=== PATIENT | female | born 1965 | race Caucasian/White ===

== ENCOUNTER 2022-01-16 13:26 | Emergency (ER) | payer OTHER, SELFPAY ==
[2022-01-16 13:39] VITALS: BP 132/82; PULSE 75; RESP 16; TEMP 36.9; O2SAT 96; BMI 24.8
--- NOTE | 2022-01-16 14:59 | ED.GENADULT ---
HPI - General Adult General Time Seen by Provider: 15:00 Date Seen: 01/16/22 Chief complaint: Fall/Minor Trauma Stated complaint: Arm and Neck Injury Time Seen by Provider: 01/16/22 13:30 Source: patient Mode of arrival: ambulatory Limitations: no limitations History of Present Illness HPI narrative: Patient was referred from urgent care for further evaluation of traumatic injuries after a fall. She was at the [employer] about 8:00 p.m. last night, this was the liquor store in [place] per report. She went to grab something off a shelf and turnaround in there was a palate behind her. She fell onto the palate into the shelf. She injured both wrists, more her left side. There is no loss of consciousness, no ongoing headache. She states it hurts a bit in both wrists, her left elbow hurts, her left shoulder hurts. She did complain of neck pain but it is more the muscles on the side of the neck. When I go into the room and I am talking to her she is moving her neck around mobilizing it. No shortness of breath, no difficulty breathing. She did fall on her knees a bit as well but she states it is not hurting walking, they are not giving her any significant pain. She has an arm sling on this left arm and feels like her fingers are a bit swollen on this side at this time. They were not this way before the injury. Related Data Home Medications Medication Instructions Recorded Confirmed atenolol 25 mg tablet 25 mg PO 01/16/22 01/16/22 cetirizine 10 mg tablet 10 mg PO 01/16/22 01/16/22 duloxetine 30 mg capsule,delayed ea PO 01/16/22 01/16/22 release duloxetine 60 mg capsule,delayed ea PO 01/16/22 01/16/22 release lisinopril 20 1 tab PO 01/16/22 01/16/22 mg-hydrochlorothiazide 25 mg tablet montelukast 10 mg tablet 10 mg PO 01/16/22 01/16/22 omeprazole 20 mg capsule,delayed 20 mg PO 01/16/22 01/16/22 release simvastatin 40 mg tablet 40 mg PO 01/16/22 01/16/22 trazodone 50 mg tablet 50 mg PO 01/16/22 01/16/22 venlafaxine 75 mg capsule,extended ea PO 01/16/22 01/16/22 release 24 hr Allergies Allergy/AdvReac Type Severity Reaction Status Date / Time levofloxacin [From Levaquin] Allergy Severe Rogers's Verified 01/16/22 12:16 tendon pain naproxen Allergy Severe Rash Verified 01/16/22 12:16 Review of Systems Status of ROS: Reports: 6 or more systems reviewed and unremarkable except as noted in History and below [facility] Medical History (Updated 01/16/22 @ 17:29 by Breonna Hernandez MD) Fall with injury Social History Smoking Status: Current every day smoker Exam Const: Vital Signs, click to edit/add: Vital Signs - 24 hr 01/16/22 13:39 Temperature 98.4 F Pulse Rate [Pulse Oximeter] 75 Respiratory Rate 16 Blood Pressure [Ri ght Upper Arm] 132/82 Pulse Oximetry 96 Oxygen Delivery Me thod Room Air Documenting provider has reviewed patient's vital signs: yes Common normals: no apparent distress, average body habitus, oriented x3, no limitations, healthy appearing, alert and well nourished Nutritional appearance: thin HENMT: Common normals: normocephalic, head/scalp atraumatic and hearing grossly normal bilaterally Head and scalp: normocephalic and atraumatic Eye: Common normals: PERRL, EOMs intact bilaterally, conjunctivae normal and no scleral icterus Conjunctiva: conjunctiva(e) normal Pupil: PERRL Neck & C-Spine: Common normals: full ROM (No midline tenderness of her cervical spine.), no lymphadenopathy, supple, no meningeal signs, no JVD, thyroid normal and no carotid bruits Thyroid: thyroid normal Other: Pain is more along the trapezius area on that left side and some into the muscles more laterally on the neck. There is no central neck pain however. She is seen moving and mobilizing her neck around during the interaction. Turns her head easily. Chest: Common normals: inspection of chest normal Other: Complains of pain when I palpate along her clavicle, along the glenohumeral joint, along the trapezius, along the scapula on the left side. No overlying skin changes such as crepitus or bruising noted. Resp: Common normals: normal respiratory effort, no retractions, no use of accessory muscles and clear to auscultation bilaterally Auscultation: clear to auscultation bilaterally Cardio: Common normals: no JVD, regular rate, regular rhythm, S1 normal heart sound, S2 normal heart sound, no gallops, no clicks and no murmurs Rate: regular rate Rhythm: regular rhythm Heart sounds: S1 normal and S2 normal Extremity: Other: Has diminished range of motion around the shoulder and elbow due to pain. She has an ecchymosis more distally along the humerus along the posterolateral aspect. No open wound. I note no effusion around the elbow but she complains of generalized pain on palpation as well as mobilization. Forearm is nontender, she complains of bilateral wrist pain. There is no snuffbox tenderness on either side, no ecchymosis or swelling about the wrist. Complains of generalized tenderness about her wrist. Hands on the left may have just a little finger swelling but no erythema or ecchymosis. She did have this arm in the sling on arrival in do wonder if this could be some edema from immobilization and having the ecchymosis and trauma of this arm. Neuro: Common normals: oriented x3 Sensorium/orientation: alert Meningeal signs: no meningeal signs Course Course Hospital Course: Will be imaging her wrists, left elbow, left shoulder, chest as well as cervical spine. Reviewed with them that they do not feel that she needs cervical spine imaging. The mechanism does not suggest the need for this higher level imaging. She neurologically is not showing me any symptomatology that would suggest she needs a CT of her neck either. I think at this time plain film would be fine. We did discussed pain management. She had a rash from naproxen. We had discussed IM Toradol but given that she had a rash with the naproxen IA will give her 1 dose of 50 mg oral tramadol and await the imaging. Reevaluation(s) Reevaluation #1: Reviewed the normal imaging. Did review with them that this does not rule out such things as rotator cuff pathology. If she has ongoing shoulder issues would have her follow up to be evaluated for that. Often times with initial injuries that can be difficult to tease out soft tissue versus ligament due to the pain of the initial injury. If she has ongoing symptoms have stressed that she does need to be re-evaluated in clinic. Time: 17:36 Vital Signs Vital signs: Initial Vital Signs Temperature 98.4 F 01/16/22 13:39 Temperature Source Temporal Artery Scan 01/16/22 13:39 Pulse Rate 75 01/16/22 13:39 Pulse Rhythm 01/16/22 13:39 Respiratory Rate 16 01/16/22 13:39 Blood Pressure 132/82 01/16/22 13:39 Blood Pressure Mean 98 01/16/22 13:39 Blood Pressure Position Sitting 01/16/22 13:39 Pulse Oximetry 96 01/16/22 13:39 Oxygen Delivery Method 01/16/22 13:39 Vital Signs Temperature 98.4 F 01/16/22 13:39 Pulse Rate 75 01/16/22 13:39 Respiratory Rate 16 01/16/22 13:39 Blood Pressure 132/82 01/16/22 13:39 Pulse Oximetry 96 01/16/22 13:39 Oxygen Delivery Method 01/16/22 13:39 Temperature 98.4 F 01/16/22 13:39 Pulse Rate 75 01/16/22 13:39 Respiratory Rate 16 01/16/22 13:39 Blood Pressure 132/82 01/16/22 13:39 Pulse Oximetry 96 01/16/22 13:39 Oxygen Delivery Method 01/16/22 13:39 Medical Decision Making Imaging Data X-ray cervical spine: Attestation: I have reviewed the pertinent imaging results. My impression: See no acute fracture my preliminary read. Radiologist's impression: Patient: LIZA JAY Facility:?[facility] Patient ID:?[id number] Site Patient ID:?[id number]. Site :?1965 Study:?XRay Spine Cervical -01/16/2022 3:34:12 PM Ordering Physician:?David Ravi Final Report: INDICATION: Pain after fall. COMPARISON: None available. FINDINGS: The cervical spine was examined with AP, lateral and open mouth views for a total of three views. The cervical vertebral bodies and disc spaces are normal in height. The vertebral bodies are in anatomic alignment with no sign of fracture or subluxation. The prevertebral soft tissues are normal in appearance with no sign of swelling. The airway structures are normal in appearance. IMPRESSION: Normal cervical spine three views. Dictated by Neymar Sams MD @ 01/16/2022 4:47:28 PM (Electronic Signature) X-ray left shoulder: Attestation: I have reviewed the pertinent imaging results. My impression: I see no acute fracture my preliminary read. Radiologist's impression: Patient: LIZA JAY Facility:?[facility] Patient ID:?[id number] Site Patient ID:?[id number]. Site :?1965 Study:?XRay Shoulder Left -01/16/2022 3:34:34 PM Ordering Physician:?David Ravi Final Report: INDICATION: Pain after fall COMPARISON: None available. FINDINGS: The left shoulder was examined with AP internal and external rotation and outlet views for a total of three views. The osseous structures are in anatomic alignment without fracture or dislocation. There is anatomic alignment of the humeral head and glenoid. The visualized chest is clear. IMPRESSION: Normal left shoulder. Dictated by Neymar Sams MD @ 01/16/2022 4:48:25 PM (Electronic Signature) X-ray right wrist: Attestation: I have reviewed the pertinent imaging results. My impression: No acute pathology on my preliminary read. Radiologist's impression: Patient: LIZA JAY Facility:?[facility] Patient ID:?[id number] Site Patient ID:?[id number]. Site :?1965 Study:?XRay Extremity Right WRIST-01/16/2022 3:34:55 PM Ordering Physician:?David Ravi Final Report: INDICATION: Pain after fall COMPARISON: None available. TECHNIQUE: AP, lateral, and oblique views of the right wrist are obtained for a total of three views. FINDINGS: There is no sign of fracture or dislocation. The bones of the carpus are in anatomic alignment with the distal radius. No degenerative disease is seen. The soft tissues are normal in appearance with no sign of foreign body. IMPRESSION: Normal right wrist. Dictated by Neymar Sams MD @ 01/16/2022 4:49:12 PM (Electronic Signature) Chest x-ray: Attestation: I have reviewed the pertinent imaging results. My impression: No acute pathology on my preliminary read Radiologist's impression: Patient: LIZA JAY Facility:?[facility] Patient ID:?[id number] Site Patient ID:?[id number]. Site :?1965 Study:?XRay Chest 2 VIEW-01/16/2022 3:35:13 PM Ordering Physician:Serene Ravi Final Report: INDICATION: Pain after fall yesterday COMPARISON: None available. FINDINGS: PA and lateral views of the chest were obtained. The lungs are clear. No focal or diffuse infiltrates are present. The heart is normal in size. The mediastinum is normal in appearance. There are old, healed fractures of the right posterior-lateral 5th and 6th ribs. There is no sign of any acute rib fracture or fracture of the visualized shoulder girdle to correlate with the history of pain after fall. The thoracic spine is normal in appearance for the patient`s age with mild disc degenerative disease scattered throughout it. IMPRESSION: No active disease seen in the chest. No sign of acute osseous injury to correlate with the history of pain after fall. Dictated by Neymar Sams MD @ 01/16/2022 4:50:46 PM (Electronic Signature) X-ray left elbow: Attestation: I have reviewed the pertinent imaging results. My impression: No acute changes on my preliminary read. Radiologist's impression: Patient: LIZA JAY Facility:?[facility] Patient ID:?[id number] Site Patient ID:?[id number]. Site :?1965 Study:?XRay Extremity Left ELBOW-01/16/2022 3:35:36 PM Ordering Physician:Serene Ravi Final Report: INDICATION: Pain after fall COMPARISON: None available. FINDINGS: The left elbow is examined with AP, lateral, and oblique views. There is no sign of fracture, dislocation, or joint effusion. Minimal ossifications are seen adjacent to the coronoid process and the dorsal olecranon from previous soft tissue injury. The soft tissues are normal in appearance without sign of radio-opaque foreign body. No degenerative disease is seen. IMPRESSION: No sign of acute osseous injury. Dictated by Neymar Sams MD @ 01/16/2022 4:52:11 PM (Electronic Signature) X-ray left wrist: Attestation: I have reviewed the pertinent imaging results. My impression: No acute fracture my preliminary read. Radiologist's impression: Patient: LIZA JAY Facility:?[facility] Patient ID:?[id number] Site Patient ID:?[id number]. Site :?1965 Study:?XRay Extremity Left WRIST-01/16/2022 3:35:52 PM Ordering Physician:Serene Ravi Final Report: HISTORY: Pain after fall yesterday. COMPARISON: None available. FINDINGS: AP, lateral, and oblique views of the left wrist are obtained for a total of three views. There is no sign of fracture or dislocation. The bones of the carpus are in anatomic alignment with the distal radius. No degenerative disease is seen. The soft tissues are normal in appearance with no sign of foreign body. IMPRESSION: Normal left wrist. Dictated by Neymar Sams MD @ 01/16/2022 4:53:13 PM (Electronic Signature) Critical Care Time Critical Care Time Critical Care Time: No Discharge Plan Discharge Clinical Impression: Contusion of arm, left, Left shoulder pain, Fall, Cervical strain, acute Condition: Stable Instructions: Cervical Strain (ED), Contusion in Adults (ED), Shoulder Pain (ED) Additional Instructions: Can use the sling you have is needed for comfort. Would recommend followup in clinic this next week if you have ongoing symptoms, recheck the shoulder to ensure there are no thoughts that this might be a rotator cuff injury. Ice the bruised area on the back of your arm. The more you are able to mobilize your arm, the more the swelling will go down in the fingers. Tylenol and ibuprofen per bottle directions as needed for discomfort. Activity Level: Activity as Tolerated Prescriptions: No Action trazodone 50 mg tablet 50 mg PO Label Comments: TAKE 1-2 TABLETS BY MOUTH AT BEDTIME NEEDED FOR SLEEP omeprazole 20 mg capsule,delayed release(DR/EC) 20 mg PO Label Comments: TAKE ONE CAPSULE BY MOUTH ONCE DAILY BEFORE A MEAL venlafaxine 75 mg capsule,extended release 24hr PO Label Comments: TAKE ONE CAPSULE BY MOUTH ONCE DAILY WITH A MEAL montelukast 10 mg tablet 10 mg PO Label Comments: TAKE ONE TABLET BY MOUTH AT BEDTIME lisinopril-hydrochlorothiazide 20-25 mg tablet 1 tab PO Label Comments: TAKE ONE TABLET BY MOUTH EVERY DAY duloxetine 60 mg capsule,delayed release(DR/EC) PO Label Comments: TAKE ONE CAPSULE BY MOUTH ONCE DAILY. TAKE WITH 30MG CAPSULE TO EQUAL 90MG simvastatin 40 mg tablet 40 mg PO Label Comments: TAKE ONE TABLET BY MOUTH AT BEDTIME duloxetine 30 mg capsule,delayed release(DR/EC) PO Label Comments: TAKE WITH 60MG DOSE TO EQUAL 90MG cetirizine 10 mg tablet 10 mg PO Label Comments: TAKE ONE TABLET BY MOUTH EVERY DAY atenolol 25 mg tablet 25 mg PO Follow Up/Referrals: Provider,Not a Local [Primary Care Provider] - Stand Alone Forms: [facility] Info Instructions
--- NOTE | 2022-01-16 15:10 | CRLHL7_ITS ---
For Patients: As a result of the Century Cures Act, medical imaging exams and procedure reports are released immediately into your electronic medical record. You may view this report before your referring provider. If you have questions, please contact your health care provider. INDICATION: Pain after fall COMPARISON: None available. TECHNIQUE: AP, lateral, and oblique views of the right wrist are obtained for a total of three views. FINDINGS: There is no sign of fracture or dislocation. The bones of the carpus are in anatomic alignment with the distal radius. No degenerative disease is seen. The soft tissues are normal in appearance with no sign of foreign body. IMPRESSION: Normal right wrist. Dictated by Neymar Sams MD @ 01/16/2022 4:49:12 PM (Electronically Signed)
--- NOTE | 2022-01-16 15:10 | CRLHL7_ITS ---
For Patients: As a result of the Cures Act, medical imaging exams and procedure reports are released immediately into your electronic medical record. You may view this report before your referring provider. If you have questions, please contact your health care provider. INDICATION: Pain after fall COMPARISON: None available. FINDINGS: The left elbow is examined with AP, lateral, and oblique views. There is no sign of fracture, dislocation, or joint effusion. Minimal ossifications are seen adjacent to the coronoid process and the dorsal olecranon from previous soft tissue injury. The soft tissues are normal in appearance without sign of radio-opaque foreign body. No degenerative disease is seen. IMPRESSION: No sign of acute osseous injury. Dictated by Neymar Sams MD @ 01/16/2022 4:52:11 PM (Electronically Signed)
--- NOTE | 2022-01-16 15:10 | CRLHL7_ITS ---
For Patients: As a result of the Cures Act, medical imaging exams and procedure reports are released immediately into your electronic medical record. You may view this report before your referring provider. If you have questions, please contact your health care provider. INDICATION: Pain after fall yesterday COMPARISON: None available. FINDINGS: PA and lateral views of the chest were obtained. The lungs are clear. No focal or diffuse infiltrates are present. The heart is normal in size. The mediastinum is normal in appearance. There are old, healed fractures of the right posterior-lateral 5th and 6th ribs. There is no sign of any acute rib fracture or fracture of the visualized shoulder girdle to correlate with the history of pain after fall. The thoracic spine is normal in appearance for the patient`s age with mild disc degenerative disease scattered throughout it. IMPRESSION: No active disease seen in the chest. No sign of acute osseous injury to correlate with the history of pain after fall. Dictated by Neymar Sams MD @ 01/16/2022 4:50:46 PM (Electronically Signed)
--- NOTE | 2022-01-16 15:10 | CRLHL7_ITS ---
For Patients: As a result of the Cures Act, medical imaging exams and procedure reports are released immediately into your electronic medical record. You may view this report before your referring provider. If you have questions, please contact your health care provider. HISTORY: Pain after fall yesterday. COMPARISON: None available. FINDINGS: AP, lateral, and oblique views of the left wrist are obtained for a total of three views. There is no sign of fracture or dislocation. The bones of the carpus are in anatomic alignment with the distal radius. No degenerative disease is seen. The soft tissues are normal in appearance with no sign of foreign body. IMPRESSION: Normal left wrist. Dictated by Neymar Sams MD @ 01/16/2022 4:53:13 PM (Electronically Signed)
--- NOTE | 2022-01-16 15:10 | CRLHL7_ITS ---
For Patients: As a result of the Cures Act, medical imaging exams and procedure reports are released immediately into your electronic medical record. You may view this report before your referring provider. If you have questions, please contact your health care provider. INDICATION: Pain after fall. COMPARISON: None available. FINDINGS: The cervical spine was examined with AP, lateral and open mouth views for a total of three views. The cervical vertebral bodies and disc spaces are normal in height. The vertebral bodies are in anatomic alignment with no sign of fracture or subluxation. The prevertebral soft tissues are normal in appearance with no sign of swelling. The airway structures are normal in appearance. IMPRESSION: Normal cervical spine three views. Dictated by Neymar Sams MD @ 01/16/2022 4:47:28 PM (Electronically Signed)
--- NOTE | 2022-01-16 15:12 | CRLHL7_ITS ---
For Patients: As a result of the Century Cures Act, medical imaging exams and procedure reports are released immediately into your electronic medical record. You may view this report before your referring provider. If you have questions, please contact your health care provider. INDICATION: Pain after fall COMPARISON: None available. FINDINGS: The left shoulder was examined with AP internal and external rotation and outlet views for a total of three views. The osseous structures are in anatomic alignment without fracture or dislocation. There is anatomic alignment of the humeral head and glenoid. The visualized chest is clear. IMPRESSION: Normal left shoulder. Dictated by Neymar Sams MD @ 01/16/2022 4:48:25 PM (Electronically Signed)
[2022-01-16] MEDS: TRAMADOL HCL 50 MG TABLET PO (15:36)
--- OUTSIDE RECORDS SUMMARY | 2022-01-16 16:20 | XMS_ITS | Clinical Summary ---
:1965 Author Organization [employer] [facility] [employer] [place] [address] Care Team Providers Name Role Phone Sharita Lambert NP Primary Care Provider Allergies Active Allergy Reactions Severity Noted Date Comments Amoxicillin-Pot Nausea And Vomiting 09/05/2014 heada josi Clavulanate Levofloxacin Rash 09/10/2014 Naproxen Rash 01/13/2009 Unlisted Allergen Respiratory Distress 08/26/2014 se asonal allergies (Include Detail In Comments) Venom-Honey Bee Rash, Edema 12/31/2013 Medications Medication Sig Dispensed Refills Start End Status Date Date EPINEPHrine (EPIPEN) Inject 0.3 mg 2 Each 2 10/19/19 Active 0.3 mg/0.3 mL intramuscular one 20 injectionIndications: time if needed Allergic reaction, for Allergic subsequent encounter Reaction. SUMAtriptan (IMITREX) TAKE ONE TABLET 20 tablet. 5 06/03/19 Active 50 mg BY MOUTH EVERY 2 21 tabletIndications: HOURS NEEDED Migraine without aura FOR MIGRAINE. MAX and with status DOSE 200 MG IN 24 migrainosus, not HOURS. intractable albuterol HFA Inhale 2 Puffs by 1 Each 5 06/03/19 Active (VENTOLIN HFA) 90 mouth 4 times 21 mcg/actuation daily if needed. inhalerIndications: Bronchitis DULoxetine (CYMBALTA) Take with 60 mg 90 Capsule 3 03/16/20 Active 30 mg Delayed-release dose to equal 90 21 capsuleIndications: mg Major depressive disorder, recurrent episode, moderate (HC) DULoxetine (CYMBALTA) Take 1 Capsule 90 Capsule 3 03/16/20 Active 60 mg Delayed-release (60 mg) by mouth 21 capsuleIndications: once daily. Take Major depressive with 30 mg disorder, recurrent capsule to equal episode, moderate 90 mg (HC) fluticasone (50 mcg Inhale 2 Sprays 16 g 0 04/22/19 Active per actuation) nasal to both nostrils 22 solution once daily. (FLONASE)Indications: Otitis media with effusion, unspecified laterality, Chronic maxillary sinusitis montelukast Take 1 Tablet (10 90 Tablet 2 06/06/19 Active (SINGULAIR) 10 mg mg) by mouth at 22 tabletIndications: bedtime. Seasonal allergic rhinitis due to other allergic trigger, Wheezing omeprazole (PRILOSEC) Take 1 Capsule 90 Capsule 2 06/06/19 Active 20 mg Delayed-Release (20 mg) by mouth 22 capsuleIndications: once daily before Cough a meal. venlafaxine (EFFEXOR Take 1 Capsule 90 Capsule 2 06/06/19 Active XR) 75 mg cp24 (75 mg) by mouth 22 Extended-Release once daily with a capsuleIndications: meal. Menopause traZODone (DESYREL) TAKE ONE TO TWO 180 Tablet 1 09/11/19 Active 50 mg TABLETS BY MOUTH 22 tabletIndications: AT BEDTIME Primary insomnia NEEDED FOR SLEEP meloxicam 15 mg Take 1 Tablet (15 90 Tablet 2 09/11/19 Active tabletIndications: mg) by mouth once 22 DDD (degenerative daily. disc disease), thoracolumbar, Spondylolisthesis of lumbosacral region cetirizine (ZYRTEC) TAKE ONE TABLET 90 Tablet 1 10/20/19 Active 10 mg BY MOUTH EVERY 22 tabletIndications: DAY Otitis media with effusion, unspecified laterality, Chronic maxillary sinusitis lisinopril-hydrochlor TAKE ONE TABLET 90 Tablet 2 12/08/19 Active othiazide, 20-25 mg, BY MOUTH EVERY 22 (PRINZIDE, DAY ZESTORETIC) 20-25 mg per tabletIndications: Hypertension, unspecified type simvastatin (ZOCOR) TAKE ONE TABLET 90 Tablet 2 12/21/19 Active 40 mg BY MOUTH AT 22 tabletIndications: BEDTIME Mixed hyperlipidemia atenoloL (TENORMIN) TAKE ONE TABLET 90 Tablet 0 01/16/20 Active 25 mg BY MOUTH EVERY 22 tabletIndications: DAY HTN (hypertension) simvastatin (ZOCOR) TAKE ONE TABLET 90 Tablet 0 09/09/1912/03 8/2 Discontinued 40 mg BY MOUTH AT 22 022 tabletIndications: BEDTIME Mixed hyperlipidemia atenoloL (TENORMIN) TAKE ONE TABLET 30 Tablet 0 11/17/1912/03 9/2 Discontinued 25 mg BY MOUTH EVERY 22 022 tabletIndications: DAY HTN (hypertension) atenoloL (TENORMIN) TAKE ONE TABLET 30 Tablet 0 12/22/1901/02 3/2 Discontinued 25 mg BY MOUTH EVERY 22 022 tabletIndications: DAY HTN (hypertension) Active Problems Problem Noted Date Migraine without aura and with status migrainosus, not intractable 06/22/2016 Tobacco use disorder 07/23/2010 Hyperlipidemia 07/23/2010 Major depression, recurrent 07/23/2010 Hypertension 07/21/2010 Resolved Problems Problem Noted Date Resolved Date Migraine 12/01/2011 06/22/2016 Acute sinusitis, unspecified 01/01/2010 02/15/2016 Encounters Date Type Specialty Care Team Description 01/13/2022 Refill Sharita Lambert NP Refill Request (Atenolol) 12/17/2021 Refill Sharita Lambert NP Refill Request (Simvastatin, Atenolol) 12/03/2021 Refill Sharita Lambert NP Refill Request (Lisinopril-hyd rochlorothiazide (20-25 Mg)) 11/13/2021 Refill Sharita Lambert NP Refill Request (Atenolol) 10/17/2021 Refill Danelle Chan Refill Re quest (Cetirizine) MD Guicho from Last 3 Months Immunizations Name Administration Dates Next Due Influenza Virus, Unspecified 01/23/2008, 02/14/2007 Influenza, IIV3 (Age 6-35 mos) 01/25/2011, 01/01/2010 Influenza, IIV3 (Age >=3 years) 02/19/2013, 12/21/2011, 01/03, 01/01/2010 Influenza, IIV4 02/12/2020, 02/07/2015, 03/11/2014 Pneumococcal conj 13-Valent (Prevnar 04/22/2021 13) Td (Age >=7 Years) 04/22/2021 Td, Preservative Free (age >= 7 10/30/2001 Years) Tdap 01/25/2011 Zoster (Shingrix-RZV, recombinant) 06/02/2020, 02/12/2020 Family History Medical History Relation Name Comments Diabetes Brother 1 Heart Disease Brother 2 Diabetes Father Heart Disease Father Cardiomyopathy Mother Hypertension Mother Thyroid Disease Mother Cardiomyopathy Other maternal aunt Asthma Son 2 Allergies Son 3 Cancer-breast No Family History Relation Name Status Comments Brother 1 Alive Brother 2 Father Alive Mother Alive Other Son 1 Alive Son 2 Son 3 Social History Tobacco Use Types Packs/Day Years Used Date Current Every Day Smoker Cigarettes 0.5 25 Smokeless Tobacco: Never Used Tobacco Cessation: Ready to Quit: Yes; C ounseling Given: Yes Comments: she has info and is trying to quit Alcohol Use Standard Drinks/Week Comments Yes 0 (1 standard drink = 0.6 oz pure alcoho l) social Alcohol Habits Answer Date Recorded How often do you have a drink containing alcohol? Not asked How many drinks containing alcohol do you have on a typical Not asked day when you are drinking? How often do you have six or more drinks on one occasion? No t asked Comment: social 03/16/2011 Sex Assigned at Date Recorded Not on file Obstetrics History Para Term AB IAB SAB Ectopic Multiple Living Live Births 1 1 Date Outcome GA Total Labor/2nd/3rd Weight Sex Delivery Anes PTL Charito A 1 A5 Name Clin Labor Last Filed Vital Signs Vital Sign Reading Time Taken Comments Blood Pressure 126/78 09/10/2021 12:59 PM CDT Pulse 72 09/10/2021 12:59 PM CDT Temperature 36.4 ??C (97.5 ??F) 04/22/2021 10:16 AM DIRECTOR [employer] Respiratory Rate 12 09/10/2021 12:59 PM CDT Oxygen Saturation 98% 04/22/2021 10:16 AM [employer] Inhaled Oxygen Concentration - - Weight 61.2 kg (135 lb) 09/10/2021 12:59 PM CDT Height 160 cm (5' 3) 03/16/2021 2:30 PM [employer] Body Mass Index 23.91 03/16/2021 2:30 PM [employer] Plan of Treatment Health Maintenance Due Date Last Done Comments Mammogram for age 45-75 02/28/2021 02/29/2020, 05/19/2018, 07/06/2016, Additional history exists COVID-19 vaccine series (4 - 07/25/2021 05/30/2021, 021, Booster for Pfizer series) 12/06/2020 Depression screening for age 12+ 11/03/2021 11/03/2020, , 09/04/2018, Additional history exists Influenza for age 50-64 12/03/2021 02/12/2020, 02/07/2015, 03/11/2014, Additional history exists BMI (ht and wt on same day) for 03/16/2022 03/16/2021, 08/05/2020, age 18+ 06/02/2020, Additional history exists Pneumococcal series for age 19-64 04/22/2022 04/22/2021 (2 - PPSV23 or PCV20) Pap test for age 21-65 02/11/2023 02/12/2020, 07/12/2016, 12/06/2014, Additional history exists Lipids for age 45-75 02/11/2025 02/12/2020, 05/15/2018, 07/12/2016, Additional history exists Colonoscopy through age 75 07/28/2026 07/28/2016, 7, 07/28/2016, Additional history exists Tetanus booster 04/22/2031 04/22/2021, 01/25/2011, 10/30/2001 Hepatitis C screening for age Completed 07/21/2010 18-79 Tdap Completed 01/25/2011 Zoster (shingles) series for age Completed 06/02/2020, 01/2020 50+ Medical Devices Implanted Type Area Air Traffic Control Manager Device Shelf Model / Identifier Expiration Serial / Date Lot Mesh Marlex Sm Perfix Plug - [id number] Right: DAVOL [id number] / Implanted: Qty: 1 on 03/16/2011 at [facility] Inguinal / [id number] Results Not on filefrom Last 3 Months Insurance Payer Benefit Plan / Subscriber ID Effective Dates Phone Addre ss Type Group MOT[employer] VEHICLE [employer]VA [employer] [id number] 2011-Presen [address] [place] [id number] [place] [address] ELZA BERTRAND [place] [id number] 2021-Present [address] [place] [address] [place] (Home) [place] [id number] [place] Motor Vehicle Self [address] [place] (Home) [place] [address] [place] Personal/Family Self [address] [place]) [place] [id number] Advance Directives Latest Code Status on File Code Status Date Activated Date Inactivated Comments Full Code 07/17/2015 8:35 AM 07/17/2015 6:50 PM Code Status Discussion: Not Discussed Full Code 03/16/2011 8:00 AM 03/16/2011 4:51 PM Care Teams Car Refinisher Relationship Specialty Start Date End Date Sharita Lambert NP PCP - General Family Practice 09/07/11 [address] [facility] [place] [id number]
--- NOTE | 2022-01-16 16:51 | ED.NURSE ---
Rounded on patient. Updated in wait time for images.
== END 2022-01-16 17:44 | disposition home or self-care (01) ==
PROVIDERS: Emergency Provider Family Medicine
DX: S40.022A Contusion of left upper arm, initial encounter (principal); S16.1XXA Strain of muscle, fascia and tendon at neck level, initial encounter; W01.0XXA Fall on same level from slipping, tripping and stumbling without subsequent striking against object, initial encounter
CPT/HCPCS: 71046; 72040; 73030; 73080; 73110; 99283; A9270